=== PATIENT | male | born 1985 | race Caucasian/White ===

== ENCOUNTER 2022-01-18 01:37 | Emergency (ER) | payer OTHER ==
[2022-01-18] MEDS ORDERED: Lidocaine 1% 20 ML MDV INFILT ONE (01:38)
[2022-01-18] MEDS ORDERED: Bacitracin Oint 1 GM U/D Packet TOP ONE (02:45)
== END 2022-01-18 03:00 | disposition home or self-care (01) ==
LOC: FB.ED 01:37
DX: S61.212A Laceration without foreign body of right middle finger without damage to nail, initial encounter (principal); W23.1XXA Caught, crushed, jammed, or pinched between stationary objects, initial encounter; Y99.0 Civilian activity done for income or pay
CPT/HCPCS: 12002; 99282